=== PATIENT | female | born 1985 | race Caucasian/White ===

== ENCOUNTER 2017-09-07 23:50 | Inpatient (IN) | payer MEDICAID ==
[~2017-09-07] VITALS: Ht 165.1 cm; Wt 89.5 kg
[2017-09-07 23:51] VITALS: Ht 165.1 cm; Wt 89.5 kg
[2017-09-08] MEDS ORDERED: MISOPROSTOL 200 MCG TAB PR PRN ×2 (00:30→08:00)
[2017-09-08] MEDS ORDERED: METHYLERGONOVINE 0.2 MG INJ IM PRN (00:30)
[2017-09-08] MEDS ORDERED: BUTORPHANOL 2 MG INJ IV PRN (00:30)
[2017-09-08] MEDS ORDERED: CEFAZOLIN 2 GM/50 ML (PMX) 50 ML IV PRN (00:30)
[2017-09-08] MEDS ORDERED: OXYTOCIN 30 UNITS/LR 500 ML IV PRN (00:30)
[2017-09-08] MEDS ORDERED: CARBOPROST 250 MCG INJ IM PRN (00:30)
[2017-09-08 00:46] VITALS: BP 116/65; PULSE 67; RESP 18
[2017-09-08 01:26] LABS: BASOPHILS % 0.3 % (0.0-2.0); EOSINOPHILS # 0.1 10^3/ul (0.0-0.5); EOSINOPHILS % 1.6 % (0.0-7.0); HEMOGLOBIN 12.7 g/dl (12.0-16.0); LYMPHOCYTES # 1.6 10^3/ul (0.8-2.9); LYMPHOCYTES % 23.9 % (15.0-51.0); MEAN CORPUSCULAR HEMOGLOBIN 31.5 pg (29.0-33.0); MEAN CORPUSCULAR HGB CONC 34.3 g/dl (32.0-37.0); MEAN CORPUSCULAR VOLUME 91.8 fl (82.0-101.0); MEAN PLATELET VOLUME 11.7 fl (7.4-10.4); MONOCYTE # 0.5 10^3/ul (0.3-0.9); MONOCYTES % 7.9 % (0.0-11.0); NEUTROPHIL # 4.4 10^3/ul (1.6-7.5); NEUTROPHILS % 65.7 % (39.0-77.0); PLATELET COUNT 160 10^3/UL (140-415); RED BLOOD COUNT 4.03 10^6/ul (4.20-5.40); RED CELL DISTRIBUTION WIDTH 12.9 % (11.5-14.5); WHITE BLOOD COUNT 6.7 10^3/ul (4.8-10.8)
[2017-09-08] MEDS: LACTATED RINGER'S 1,000 ML IV SCH ×4 (01:36→16:30)
[2017-09-08 01:49] LABS: INR 0.89; PROTIME 12.1 Sec (11.9-14.9); PT RATIO 0.9
[2017-09-08 01:50] LABS: PARTIAL THROMBOPLASTIN TIME 26.7 Sec (25.0-35.0)
[2017-09-08] MEDS ORDERED: METOCLOPRAMIDE 10 MG INJ ONE (07:44)
[2017-09-08] MEDS ORDERED: ONDANSETRON 4 MG INJ ONE (07:44)
[2017-09-08] MEDS ORDERED: morphine SULFATE/PF (10 MG/10 ML) INJ ONE (07:44)
[2017-09-08] MEDS ORDERED: KETOROLAC 30 MG INJ ONE (07:44)
--- NOTE | 2017-09-08 07:53 | HP ---
Date/Time of Note Date/Time of Note DATE: 09/08/17 TIME: 07:51 OB - History Hx of Present Free Text/Dictation HISTORY OF PRESENT ILLNESS: 31 YO with history of previous delivery x 4, who desires to have repeat delivery and Permanent sterilization. I discussed with the patient the risks, benefits, indications, and alternatives of procedure including but not limited to risks of infection, bleeding, damage to other organs, bowel, bladder, hernia formation, scar formation, possibility of blood transfusion, possible need for emergency hysterectomy, as well as the fact that tubal ligation may fail and there is 1 to 2% risk of failure over lifetime of tubal ligations and the fact that tubal ligation is permanent and irreversible. She was allowed to ask questions. All her questions were answered. Informed consent has been obtained. Estimated Due Date: Sep 13, 2017 Care: Good Care Ultrasounds: Normal mid trimester US Obstetrical Complications: None Medical Complications: None Past Family/Social History * Past Medical, Surgical, Family and Obstetric Histories reviewed from chart. OB Admission Exam Vital Signs Vital Signs Vital Signs Date Time Temp Pulse Resp B/P Pulse Ox O2 Delivery O2 Flow Rate FiO2 09/08/17 00:46 98.5 67 18 116/65 Room Air Physical Exam HEENT: WNL Heart: Rhythm Normal Lungs: Clear, Equal Abdomen: WNL Extremities: Normal Reflexes: Normal Last 72 hours Lab Results CBC & BMP 09/08/17 01:00 OB Assessment/Plan Other Assessment: Assessment: IUP 39 weeks h/o previuos Desires repeat Desires permanent sterilization Other plan: Plan: Repeat Delivery Tubal ligation may be done by either salpingectomy or modified [place] BTL SEAN MUNGUIA MD Sep 08, 2017 07:53
[2017-09-08] MEDS ORDERED: OXYCODONE/ACETAMINOPHEN (5/325) TAB PO PRN ×2 (08:00)
[2017-09-08] MEDS ORDERED: LANOLIN 7 GM TUBE TOP PRN (08:00)
[2017-09-08] MEDS ORDERED: NA PHOSPHATE/BIPHOS 133 ML ENEMA PR PRN (08:00)
[2017-09-08] MEDS ORDERED: PHENYLephrine (100 MCG/ML) 5ML SYG ONE (08:05)
[2017-09-08] MEDS ORDERED: FENTAnyl 50 MCG/ML VIAL ONE (08:32)
[2017-09-08] MEDS ORDERED: EPHEDrine SULFATE 50 MG/5 ML SYG ONE (08:33)
[2017-09-08] MEDS ORDERED: OXYTOCIN 30 UNITS/LR 500 ML IV ONE (08:55)
[2017-09-08] MEDS ORDERED: NALOXONE (0.4 MG/ML) INJ IV PRN (09:00)
[2017-09-08] MEDS ORDERED: morphine 2 MG INJ IV PRN ×2 (09:00)
[2017-09-08] MEDS ORDERED: morphine 4 MG/ML VIAL IV PRN (09:00)
[2017-09-08] MEDS ORDERED: ONDANSETRON 4 MG INJ IV PRN ×2 (09:00)
[2017-09-08] MEDS ORDERED: morphine (1 MG/ML) 10ML SYRINGE IV PRN ×2 (09:00)
[2017-09-08] MEDS: SENNA/DOCUSATE NA (8.6MG/50MG) TAB PO SCH ×2 (09:00→21:31)
[2017-09-08] MEDS ORDERED: DIPHENHYDRAMINE 50 MG INJ IV PRN ×2 (09:00)
--- NOTE | 2017-09-08 09:03 | OPR ---
Operative Report Planned Procedure Procedure date Sep 08, 2017 Procedure(s) Repeat delivery Bilateral distal salpingectomy Lysis of adhesions Performed by see signature line Assistant Corporate Secretary Dr. Carrasquillo Pre-procedure diagnosis 1. Term , history of previous delivery x 4 2. Desires repeat delivery. 3. Desires permanent sterilization Anesthesia Type: spinal Post-Procedure Post-procedure diagnosis same pelvic adhesions Findings Live Baby adhesions from the tubes to ovaries and omentum Estimated Blood Loss: other (600 ml) Specimen(s) segments of the tubes Grafts/Implant(s) none Complication(s) none Pt Condition post procedure: stable Disposition: PACU Procedure Description The risks, benefits, indications, alternatives of procedure including, but not limited to risk of infection, bleeding, damage to other organs, bowel, bladder, hernia formation, scar formation, possibility of blood transfusions, the risks of tubal ligation such as failure and future pregnancies were discussed with the patient. The fact that BTL is permanent and irreversible also discussed with patient. She was allowed to ask questions. All her questions were answered. Informed consent was obtained. DESCRIPTION OF PROCEDURE: She was taken to the operating room. Spinal anesthesia was induced. She was prepped and draped in the usual sterile fashion. Surgical time out one. Anesthesia was tested to be adequate. With permission from anesthesiologist, a knife was used to make a Pfannenstiel skin incision. The incision was taken down in layers. The fascia was cut, undermined and from the underlying muscle using sharp and blunt dissection. All the bleeders were cauterized. Peritoneum was entered bluntly. A low transverse incision was developed over the uterus. Amniotic fluid was clear and adequate. A viable in vertex presentation was delivered without any difficulty. The cord was clamped and cut, handed to awaiting team. Placenta was then delivered. Uterus was exteriorized, wrapped around a moist lap. Inside uterus was cleaned using a dry lap. All residual membranes were removed. The uterine incision was then closed using #1 Monocryl in 2 layers. Adhesions from the tubes to ovaries and omentum were noted and taken down with sharp and blunt dissection in order to allow us to proceed with BTL. A 5 cm distal end of the right tube was ligated 3 times using 0 plain tie and the ligated portion was cut , sent to pathology. Same procedure was done on the contralateral side. The uterus was inserted back inside the abdominal cavity. Irrigation was done carefully. Careful evaluation of the uterine incision revealed no further bleeding. The tubal ligation sites were evaluated carefully. There was no bleeding. The peritoneum and rectus muscles and fascia were evaluated. All bleeders cauterized. Peritoneum was closed using 2-0 Monocryl. At this time, the count was correct. Rectus fascia was reapproximated using 2-0 Monocryl. Rectus fascia was closed using #1 Vicryl. Subcutaneous tissue was cleaned and irrigated. All bleeders cauterized and the skin closed using Insorb. All counts correct. SEAN MUNGUIA MD Sep 08, 2017 09:03
[2017-09-08] MEDS: OXYTOCIN 30 UNITS/LR 500 ML IV SCH ×2 (09:37→12:47)
[2017-09-08] MEDS ORDERED: CITRIC ACID/SODIUM CITRATE 15 ML CUP PO ONE (10:00)
[2017-09-08] MEDS: IBUPROFEN 600 MG TAB PO SCH ×2 (12:00→18:00)
[2017-09-08 12:20] VITALS: BP 110/54; PULSE 64; RESP 18
[2017-09-08 12:50] VITALS: BP 97/51; PULSE 66; RESP 16
[2017-09-08 16:00] VITALS: BP 97/54; PULSE 65; RESP 16
[2017-09-08 19:40] VITALS: BP 110/62; PULSE 74; RESP 17
[2017-09-08] MEDS: KETOROLAC 30 MG INJ IV PRN (23:47)
[2017-09-09] MEDS: LACTATED RINGER'S 1,000 ML IV SCH ×2 (00:39→07:54)
[2017-09-09 04:20] VITALS: BP 84/52; PULSE 62; RESP 18
[2017-09-09] MEDS: IBUPROFEN 600 MG TAB PO SCH ×4 (05:39→17:58)
[2017-09-09 07:30] VITALS: BP 94/52; PULSE 66; RESP 16
[2017-09-09] MEDS: KETOROLAC 30 MG INJ IV PRN (07:30)
--- NOTE | 2017-09-09 08:05 | QN ---
Documentation Comment 09/09/2017 POD # 1 S: no compliant O: AF, VSS Abdomen: soft and appropriate tender Dressing is intact Ext: 1+ edema Bilaterally A: Doing well P: increase ambulation SEAN MUNGUIA MD Sep 09, 2017 08:05
[2017-09-09] MEDS: SENNA/DOCUSATE NA (8.6MG/50MG) TAB PO SCH ×2 (09:10→20:42)
--- NOTE | 2017-09-09 09:57 | PN ---
Date/Time of Note Date/Time of Note DATE: 09/09/17 TIME: 09:54 Assessment/Plan VTE Prophylaxis VTE Prophylaxis Intervention: ambulation Lines/Catheters IV Catheter Type (from Nrsg): Peripheral IV Subjective 24 Hr Interval Summary Free Text/Dictation Anesthesia note: A 31 year female s/p spinal duramorph pod#1 iso doing well. no pain, n/ v, back pain, itching, headache. no sensory or motor deficit. back is clean no inflammation. care per surgery. Exam/Review of Systems Vital Signs Vitals Vital Signs Date Time Temp Pulse Resp B/P Pulse Ox O2 Delivery O2 Flow Rate FiO2 09/09/17 07:30 98.4 66 16 94/52 Room Air 09/09/17 06:07 96 21 Intake and Output 09/08/17 09/08/17 09/09/17 15:00 23:00 07:00 Intake Total 375 ml 1250 ml 1000 ml Output Total 850 ml 1300 ml 900 ml Balance -475 ml -50 ml 100 ml Results Result Diagram: 09/08/17 0100 Medications Medications Current Medications Oxytocin/Lactated Ringer's 500 ml @ 0 mls/hr ONCE PRN IV For Hemorrhage Management; Start 09/08/17 at 00:30 Methylergonovine Maleate (Methergine) 0.2 mg ONCE PRN IM VAGINAL BLEEDING; Start 09/08/17 at 00:30 Carboprost Tromethamine (Hemabate) 250 mcg ONCE PRN IM VAGINAL BLEEDING; Start 09/08/17 at 00:30 Misoprostol (Cytotec) 1,000 mcg ONCE PRN [place] VAGINAL BLEEDING; Start 09/08/17 at 00:30 Oxycodone/ Acetaminophen (Percocet (5/ 325)) 1 tab Q4H PRN PO PAIN LEVEL 4-6; Start 09/08/17 at 08:00 Oxycodone/ Acetaminophen (Percocet (5/ 325)) 2 tab Q4H PRN PO PAIN LEVEL 7-10; Start 09/08/17 at 08:00 Ibuprofen (Motrin) 600 mg Q6 PO ; Start 09/08/17 at 12:00 Simethicone (Mylicon) 160 mg Q8H PRN PO DISTENSION/GAS/BLOATING Last administered on 09/09/17t 09:10; Admin Dose 160 MG; Start 09/08/17 at 08:00 Senna/Docusate Sodium (Senokot-S) 1 tab BID PO Last administered on 09/09/17t 09:10; Admin Dose 1 TAB; Start 09/08/17 at 09:00 Sodium Biphosphate/ Sodium Phosphate (Fleet Enema) 133 ml DAILY PRN [place] CONSTIPATION; Start 09/08/17 at 08:00 Diphtheria/ Tetanus/Acell Pertussis (Adacel) 0.5 ml ONCE ONCE IM* ; Start 09/11 at 09:00; Stop 09/11/17 at 09:01 Measles/Mumps/ Rubella Vaccine Live (Mmr Ii Vaccine) 0.5 ml ONCE ONCE SC* ; Start 09/11/17 at 09:00; Stop 09/11/17 at 09:01 Misoprostol (Cytotec) 1,000 mcg ONCE PRN [place] VAGINAL BLEEDING; Start 09/08/17 at 08:00 VIOLETA MORALES MD Sep 09, 2017 09:57
[2017-09-09 10:29] LABS: BASOPHILS % 0.4 % (0.0-2.0); EOSINOPHILS # 0.1 10^3/ul (0.0-0.5); EOSINOPHILS % 1.1 % (0.0-7.0); HEMATOCRIT 34.3 % (37.0-47.0); HEMOGLOBIN 11.7 g/dl (12.0-16.0); LYMPHOCYTES # 1.4 10^3/ul (0.8-2.9); LYMPHOCYTES % 16.4 % (15.0-51.0); MEAN CORPUSCULAR HGB CONC 34.1 g/dl (32.0-37.0); MEAN CORPUSCULAR VOLUME 93.7 fl (82.0-101.0); MEAN PLATELET VOLUME 11.3 fl (7.4-10.4); MONOCYTE # 0.6 10^3/ul (0.3-0.9); MONOCYTES % 7.3 % (0.0-11.0); NEUTROPHIL # 6.2 10^3/ul (1.6-7.5); NEUTROPHILS % 74.3 % (39.0-77.0); PLATELET COUNT 151 10^3/UL (140-415); RED BLOOD COUNT 3.66 10^6/ul (4.20-5.40); RED CELL DISTRIBUTION WIDTH 13.1 % (11.5-14.5); WHITE BLOOD COUNT 8.3 10^3/ul (4.8-10.8)
[2017-09-09 15:48] VITALS: BP 99/63; PULSE 61; RESP 17
[2017-09-09 19:30] VITALS: BP 89/54; PULSE 66; RESP 17
[2017-09-10] MEDS: IBUPROFEN 600 MG TAB PO SCH ×5 (00:11→23:24)
[2017-09-10 03:45] VITALS: BP 87/53; PULSE 55; RESP 20
[2017-09-10 07:30] VITALS: BP 98/54; PULSE 58; RESP 18
[2017-09-10] MEDS: SENNA/DOCUSATE NA (8.6MG/50MG) TAB PO SCH ×2 (09:00→23:24)
[2017-09-10 15:38] VITALS: BP 92/56; PULSE 62; RESP 18
[2017-09-10 20:00] VITALS: BP 89/53; PULSE 57; RESP 20
--- NOTE | 2017-09-10 20:59 | PN ---
Date/Time of Note Date/Time of Note DATE: 09/10/17 TIME: 20:57 OB Subjective Subjective Subjective Denies any nausea vomiting. Breast-feeding. Ambulating. Pain controlled. Passed flatus. Vaginal bleeding decrease. Denies any complaint. OB Objective Objective Objective Appears: Alert and oriented 4. Patient does not appear to be in any acute distress. Abdomen: Soft, appropriate tenderness in the incision. Incision clean dry and intact. There is evidence of ecchymosis in the lower edge of the incision and toward the mons pubis. Lungs: Clear to auscultation bilaterally CV: RRR Hematology - 72 Hrs Test 09/08/17 01:00 09/09/17 09:55 White Blood Count 6.710^3/ul (4.8-10.8) 8.310^3/ul (4.8-10.8) # Red Blood Count 4.0310^6/ul (4.20-5.40) L 3.6610^6/ul (4.20-5.40) L Hemoglobin 12.7g/dl (12.0-16.0) 11.7g/dl (12.0-16.0) L Hematocrit 37.0% (37.0-47.0) 34.3% (37.0-47.0) L Mean Corpuscular Volume 91.8fl (82.0-101.0) 93.7fl (82.0-101.0) Mean Corpuscular Hemoglobin 31.5pg (29.0-33.0) 32.0pg (29.0-33.0) Mean Corpuscular Hemoglobin Concent 34.3g/dl (32.0-37.0) 34.1g/dl (32.0-37.0) Red Cell Distribution Width 12.9% (11.5-14.5) 13.1% (11.5-14.5) Platelet Count 30712^3/UL (140-415) 00336^3/UL (140-415) Mean Platelet Volume 11.7fl (7.4-10.4) H 11.3fl (7.4-10.4) H Neutrophils % 65.7% (39.0-77.0) 74.3% (39.0-77.0) Lymphocytes % 23.9% (15.0-51.0) 16.4% (15.0-51.0) Monocytes % 7.9% (0.0-11.0) 7.3% (0.0-11.0) Eosinophils % 1.6% (0.0-7.0) 1.1% (0.0-7.0) Basophils % 0.3% (0.0-2.0) 0.4% (0.0-2.0) Nucleated Red Blood Cells % 0.0/100WBC (0.0-0.0) 0.0/100WBC (0.0-0.0) Neutrophils # 4.410^3/ul (1.6-7.5) 6.210^3/ul (1.6-7.5) Lymphocytes # 1.610^3/ul (0.8-2.9) 1.410^3/ul (0.8-2.9) Monocytes # 0.510^3/ul (0.3-0.9) 0.610^3/ul (0.3-0.9) Eosinophils # 0.110^3/ul (0.0-0.5) 0.110^3/ul (0.0-0.5) Basophils # 0.010^3/ul (0.0-0.1) 0.010^3/ul (0.0-0.1) Nucleated Red Blood Cells # 0.010^3/ul (0.0-0.0) 0.010^3/ul (0.0-0.0) OB Assessment/Plan Other Assessment: Status post repeat section and BTL Postoperative day #2 Doing well Routine postop care Anticipate DC home possible tomorrow MAX LEMA MD Sep 10, 2017 20:59
[2017-09-11 04:00] VITALS: BP 101/55; PULSE 54; RESP 20
[2017-09-11] MEDS: IBUPROFEN 600 MG TAB PO SCH ×2 (05:47→12:00)
--- NOTE | 2017-09-11 08:06 | DS ---
Date/Time of Note Date/Time of Note DATE: 09/11/17 TIME: 08:05 Obstetrical Discharge Record Final Diagnosis Final Diagnosis: Term delivered Vaginal Delivery Obstetrical Delivery: Bilateral Tubal Ligation Section Section: Repeat Condition on Discharge Physical Assessment Voiding: Yes Bowel Movement: Yes Breast: Soft, non-tender, Filling Fundus: Firm Abdomen and Incision: soft and appropriate tender Calf Tenderness: No Patient Condition: Good SEAN MUNGUIA MD Sep 11, 2017 08:06
[2017-09-11 08:35] VITALS: BP 103/56; RESP 17
[2017-09-11] MEDS ORDERED: MEASLES,MUMPS,RUBELLA VACCINE INJ SC* ONE (09:00)
[2017-09-11] MEDS ORDERED: DIPHTH/TET/ACEL PERTUSS (ADULT) 0.5 ML VIAL IM* ONE (09:00)
[2017-09-11] MEDS: SENNA/DOCUSATE NA (8.6MG/50MG) TAB PO SCH (09:11)
== END 2017-09-11 15:05 | disposition home or self-care (01) | DRG 766 ==
LOC: OBT 23:50 → L-D 23:51 → OBT 09-08 00:39 → L-D 09-08 00:44 → PP1 09-08 12:25
PROVIDERS: ADMIT Specialist; ATTEND Specialist
PROC: 10D00Z1 Extraction of Products of Conception, Low, Open Approach (ICD-10-PCS; principal; 2017-09-08)
PROC: 0UT70ZZ Resection of Bilateral Fallopian Tubes, Open Approach (ICD-10-PCS; 2017-09-08)
PROC: 0UN20ZZ Release Bilateral Ovaries, Open Approach (ICD-10-PCS; 2017-09-08)
DX: O82 Encounter for cesarean delivery without indication (principal); N73.6 Female pelvic peritoneal adhesions (postinfective); O99.89 Other specified diseases and conditions complicating pregnancy, childbirth and the puerperium; Z37.0 Single live birth; Z3A.39 39 weeks gestation of pregnancy; Z30.2 Encounter for sterilization
CPT/HCPCS: 85025; 85610; 85730; 86592; 86850; 86900; 86901; 86920; 87340; 88302; 90715; 94760; 99464; G0463; J0690; J1885; J2274; J2370; J2405; J2590; J2765; J3010; J7120